=== PATIENT | female | born 1985 | race American Indian/Alaskan Native ===

== ENCOUNTER 2022-03-04 08:54 | Emergency (ER) | payer SELFPAY ==
--- NOTE | 2022-03-04 11:24 | Cat Scan Report ---
CT HEAD WITHOUT CONTRAST INDICATION / CLINICAL INFORMATION: left arm weakness. TECHNIQUE: Axial imaging performed from the skull apex through the skull base without the use of cont rast. Sagittal and coronal reformatted images. All CT scans at this location are performed using CT dose reduction for ALARA by means of automated exposure control. COMPARISON: None available. FINDINGS: CEREBRAL PARENCHYMA: No significant abnormality. No acute territorial infarct. HEMORRHAGE: None. EXTRA-AXIAL SPACES: Normal in size and morphology for the patient's age. VENTRICULAR SYSTEM: Normal in size and morphology for the patient's age. MIDLINE SHIFT OR HERNIATION: None. CEREBELLUM / BRAINSTEM: No significant abnormality. CALVARIUM: No significant abnormality. ORBITS: Normal as visualized. PARANASAL SINUSES / MASTOID AIR CELLS: Normal as visualized. SOFT TISSUES of HEAD: No significant abnormality. ADDITIONAL FINDINGS: None. IMPRESSION: No acute intracranial abnormality. Cranial CT scan within normal limits. Signer Name: Saleem Hernandez Jr, MD Signed: 03/04/2022 11:20 AM Workstation Name: [id number]
--- NOTE | 2022-03-04 11:24 | Electrocardiograph Report ---
[facility] Test Date: 2022-03-04 Test Time: 10:16:44 Pat Name: GLORIA HURLEY Department: Room: Gender: F Library Technician: ladarius : 1985 Requested By: LAUREN MANN Order Number: [id number] Reading MD: Shakeel Gonzalez Measurements Intervals [place] Rate: 92 P: 0 IL: 161 QRS: 36 QRSD: 81 T: 43 QT: 367 QTc: 455 Interpretive Statements Sinus rhythm Borderline ST elevation, anterolateral leads No previous ECG available for comparison Electronically Signed On 03-04-2022 11:24:28 EDT by Shakeel Gonzalez
[2022-03-04 11:43] LABS: Alanine Aminotransferase 9 units/L (7-56); Albumin 4.8 g/dL (3.9-5); Blood Urea Nitrogen 8 mg/dL (7-17); Calcium 9.7 mg/dL (8.4-10.2); Hemolysis Index 2
[2022-03-04 11:58] LABS: BUN/Creatinine Ratio 13
[2022-03-04 12:25] LABS: Basophils % (Auto) 0.2 % (0.0-1.8); Eosinophils # (Auto) 0.1 K/mm3 (0.0-0.4); Eosinophils % (Auto) 1.1 % (0.0-4.3); Hematocrit 38.8 % (30.3-42.9); Hemoglobin 12.8 gm/dl (10.1-14.3); Lymphocytes # (Auto) 2.4 K/mm3 (1.2-5.4); Lymphocytes % (Auto) 21.2 % (13.4-35.0); Mean Corpuscular HGB Conc 33 % (30-34); Mean Corpuscular Volume 89 fl (79-97); Monocytes # (Auto) 0.6 K/mm3 (0.0-0.8); Monocytes % (Auto) 5.7 % (0.0-7.3); Platelet Count 303 K/mm3 (140-440); Red Blood Count 4.37 M/mm3 (3.65-5.03); Red Cell Distribution Width 13.7 % (13.2-15.2)
--- NOTE | 2022-03-04 12:54 | XRay Report ---
CHEST 2 VIEWS INDICATION / CLINICAL INFORMATION: chest pain. COMPARISON: None available. FINDINGS: SUPPORT DEVICES: None. HEART / MEDIASTINUM: No significant abnormality. LUNGS / PLEURA: No significant pulmonary or pleural abnormality. No pneumothorax. ADDITIONAL FINDINGS: No significant additional findings. IMPRESSION: 1. No acute findings. Signer Name: Saleem Hernandez Jr, MD Signed: 03/04/2022 12:49 PM Workstation Name: [id number]
--- NOTE | 2022-03-04 21:58 | Emergency Department Report ---
ED Chest Pain HPI - General Chief Complaint: Chest Pain Stated Complaint: CHEST PAIN AND HAND PAIN/HAND WONT OPEN Time Seen by Provider: 03/04/22 21:24 Source: patient Mode of arrival: Ambulatory Limitations: No Limitations - History of Present Illness Initial Comments: 37-year-old female who presented with chest pain that has been going on intermittently for the last 4 months. Patient reported that she was diagnosed with pain in her breast in the past and had Mammogram that was unremarkable. Pt denies any fever or chills. Pt also mentioned pain in her left small finger, ring finger and middle finger when she woke up this morning. She not sure if she slept on it wrong. No history of CAD and no other modifying or associated factors. MD Complaint: chest pain Severity scale (0 -10): 8 - Related Data Previous Rx's Medication Instructions Recorded Last Taken Type Ketorolac [Toradol] 10 mg PO Q6H PRN 5 Days #20 tab NS 03/04/22 Unknown Rx Allergies Allergy/AdvReac Type Severity Reaction Status Date / Time No Known Allergies Allergy Unverified 03/04/22 10:08 Heart Score - HEART Score History: Slightly suspicious EKG: Normal Age: < 45 Risk factors: No known risk factors Troponin: < normal limit HEART Score: 0 - EKG Read Time Time EKG Completed: 10:16 EKG Read Time: 10:30 - Critical Actions Critical Actions: 0-3 pts:0.9-1.7%risk of adverse cardiac event.Candidate for discharge ED Review of Systems ROS: Stated complaint: CHEST PAIN AND HAND PAIN/HAND WONT OPEN Other details as noted in HPI Comment: All other systems reviewed and negative Cardiovascular: chest pain, other (mid chest wall tenderness to palpation ) Musculoskeletal: other (left finger pain ) ED Past Medical Hx - Medications Home Medications: Home Medications Medication Instructions Recorded Confirmed Last Taken Type Ketorolac [Toradol] 10 mg PO Q6H PRN 5 Days #20 tab NS 03/04/22 Unknown Rx ED Physical Exam - General Limitations: No Limitations General appearance: alert, in no apparent distress - Head Head exam: Present: normal inspection - Eye Eye exam: Present: normal appearance Pupils: Present: normal accommodation - ENT ENT exam: Present: normal exam, normal orophraynx, mucous membranes moist - Neck Neck exam: Present: normal inspection, full ROM. Absent: tenderness - Respiratory Respiratory exam: Present: normal lung sounds bilaterally, chest wall tenderness (midsternum). Absent: respiratory distress, accessory muscle use - Cardiovascular Cardiovascular Exam: Present: regular rate, normal rhythm, normal heart sounds - GI/Abdominal GI/Abdominal exam: Present: soft, normal bowel sounds. Absent: distended, tenderness - Extremities Exam Extremities exam: Present: normal inspection, normal capillary refill. Absent: tenderness - Back Exam Back exam: Present: normal inspection. Absent: tenderness ED Course Vital Signs 03/04/22 10:00 Temperature 97.8 F Pulse Rate 75 Blood Pressure 146/97 [Right] O2 Sat by Pulse 98 Oximetry RAFITA score - Rafita Score Age > 65: (0) No Aspirin use within the Past 7 Days: (0) No 3 or more CAD Risk Factors: (0) No 2 or more Angina events in past 24 hrs: (0) No Known CAD with more than 50% Stenosis: (0) No Elevated Cardiac Markers: (0) No ST Deviation Greater than 0.5mm: (0) No RAFITA Score: 0 ED Medical Decision Making - Lab Data Result diagrams: 03/04/22 10:43 03/04/22 10:43 - EKG Data -: EKG Interpreted by Pa EKG shows normal: sinus rhythm Rate: normal - EKG Data 03/04/22 22:01 Noted with normal sinus rhythm at 92 bpm with no significant ST elevation or depression in this abnormal ECG. - Medical Decision Making Here with chest pain with noted anterior chest wall tenderness which makes this likely costochondritis--differential could be but not limited to myocardial infarction, pulmonary embolism, anxiety, gastritis, GERD, pancreatitis, and or pyelonephritis--in order to rule out the above-- so will go ahead and order routine cardiopulmonary work-up that include troponin, EKG, chest x-ray, BNP, CKMB, and CBC, CMP and urinalysis for any correctable infectious process or electrolyte abnormality as a cause. Lab reviewed to be within normal limits--considering noted chest wall tenderness this is likely muscular consistent with costochondritis. Patient will be discharged home with Toradol for the next 5 days to help with the pain with close follow-up with her primary doctor. Critical care attestation.: If time is entered above; I have spent that time in minutes in the direct care of this critically ill patient, excluding procedure time. ED Disposition Clinical Impression: Costochondritis, acute Disposition: 01 HOME / SELF CARE / HOMELESS Is pt being admited?: No Does the pt Need Aspirin: No Condition: Stable Instructions: Costochondritis, [id number] Additional Instructions: Take your new medication as prescribed to continue to help your symptoms Please do not hesitate to call or return to emergency room if your symptoms worsen Call and schedule a follow-up with your primary doctor in the next 3 to 5 days for progress Prescriptions: Ketorolac [Toradol] 10 mg PO Q6H PRN 5 Days #20 tab NS PRN Reason: Pain Referrals: PRIMARY CARE, [Primary Care Provider] - 3-5 Days Time of Disposition: 22:17
[2022-03-04 22:26] VITALS: BP 113/74
== END 2022-03-04 22:25 | disposition home or self-care (01) ==
LOC: ED 08:54 → EEVIPCON 08:54 → ED 22:25
DX: M94.0 Chondrocostal junction syndrome [Tietze] (principal); Z79.899 Other long term (current) drug therapy
CPT/HCPCS: 36415; 70450; 71046; 80053; 84484; 85025; 93005; 99284